=== PATIENT | male | born 1975 | race African-American/Black ===

== ENCOUNTER 2024-01-07 17:18 | Emergency (ER) | payer BC, SELFPAY ==
[2024-01-07 17:20] VITALS: BP 155/97
--- NOTE | 2024-01-07 19:51 | ED.GENMED ---
History of Present Illness
General
Chief Complaint: Musculo-Skeletal Complaint
Time Seen by Provider: 01/07/24 19:40
History of Present Illness
History of Present Illness:
48-year-old male without significant past medical history presenting to the emergency department for right elbow swelling. Patient reports he was playing golf about 4 weeks ago and since has had swelling to the right elbow. Denies any direct
trauma to the elbow. Denies numbness or tingling. Denies fever or redness to the area. Denies any issues with range of motion to the elbow. Reports that he was initially having some pain to the area, which has since resolved. Denies additional
acute medical complaints.
Phy Exam
Physical Exam
Physical Exam:
General: Well-appearing, no clinical signs of dehydration, nontoxic and in no acute distress
HEENT: protecting airway
Neck: appears supple
CV: Normal heart rate
Resp: No accessory muscle use, no increased work of breathing
Abd: Nondistended
Extremities: Focal area of swelling overlying the olecranon of the right elbow, particularly over the olecranon bursa. Soft on palpation. No erythema or warmth. Range of motion is intact. No pain with range of motion testing. Distal sensation
and pulses intact.
Neuro: alert, no focal neurologic deficit
: deferred
Rectal: deferred
Psych: Normal affect
Skin: Intact
Course
Vital Signs
Initial and Last Documented VS:
Initial Vital Signs
Temp Pulse Resp BP Pulse Ox
99.2 F 92 18 155/97 99
01/07/24 17:20 01/07/24 17:20 01/07/24 17:20 01/07/24 17:20 01/07/24 17:20
Last Documented Vital Signs
Temp Pulse Resp BP Pulse Ox
99.2 F 92 18 155/97 99
01/07/24 17:20 01/07/24 17:20 01/07/24 17:20 01/07/24 17:20 01/07/24 17:20
MDM/Problems Addressed
MDM/Problems Addressed:
48-year-old male without significant past medical history presenting for right elbow swelling after playing golf. Vital signs on arrival are normal.
On exam patient is very well-appearing, no acute distress or discomfort. Examination appears classic for an olecranon bursitis. No signs of infection without warmth or erythema. No issues with range of motion, no pain with range of motion. No
neurovascular compromise with sensation and pulses intact. At this time do not feel patient requires any imaging or arthrocentesis. Feel patient is stable for discharge with continued outpatient conservative management. Will prescribe ibuprofen.
Given duration of symptoms, will also start on short course of steroids. Will provide information for orthopedic follow-up. Return precautions discussed and patient verbalized understanding
*Critical Care Note
Total Time (30-74mins, 75-104mins- exclusive of procedures): Not Applicable
ED Attending Note
-
Portions of this chart may have been created with voice recognition software.� Occasional wrong word or��sound alike� substitutions may have occurred due to the inherent limitations of voice recognition software.
Discharge Plan
Departure
Referrals:
Martin Castelan MD [Family Provider] -
Discharge Date and Time
Print Language: LAO
[2024-01-07 20:00] VITALS: BP 142/84
== END 2024-01-07 20:10 | disposition home or self-care (01) ==
LOC: EMR 17:18
PROVIDERS: EMERGENCY PHYSICIAN Student in an Organized Health Care Education/Training Program; FAMILY PHYSICIAN Family Medicine
DX: M70.21 Olecranon bursitis, right elbow (principal)
CPT/HCPCS: 99282